=== PATIENT | female | born 1970 | race Caucasian/White ===

== ENCOUNTER → 2018-03-09 | Outpatient (CLI) | payer OTHER ==
--- NOTE | 2018-03-09 16:36 | RAD ---
Right lower extremity venous doppler ultrasound History: Right leg pain and swelling, lymphedema Comparison: None Findings: Multiple grayscale, color, and duplex spectral analysis sonographic images were acquired of the right lower extremity veins to evaluate for the presence of DVT. There is normal phasicity. Normal compression, color-flow, and augmentation is demonstrated from the right common femoral to the popliteal veins. There is normal color flow of the proximal greater saphenous and profunda femoris veins. There is normal color flow of segments of the calf veins. Impression: 1. There is no evidence of deep venous thrombosis from the right common femoral to popliteal veins. Electronically signed by: Ari Garcia MD (03/09/2018 4:32 PM) [id number]
== END | disposition home or self-care (01) ==
LOC: US 15:51
PROVIDERS: ATTEND Nurse Practitioner Family
DX: I89.0 Lymphedema, not elsewhere classified (principal); M79.604 Pain in right leg; R22.41 Localized swelling, mass and lump, right lower limb
CPT/HCPCS: 93971

== ENCOUNTER 2018-06-06 14:32 | Emergency (ER) | payer OTHER ==
[~2018-06-06] VITALS: Ht 177.8 cm; Wt 153.7 kg
--- NOTE | 2018-06-06 15:55 | RAD ---
Examination: 2 views of the lumbar spine HISTORY: History of low back pain COMPARISON: None available. FINDINGS: Moderate intervertebral disc height loss identified throughout the lumbar spine likely due to degeneration. The facets are well aligned. Moderate facet degenerative changes identified. There is age indeterminate moderate compression change of L5 vertebral body. Mild to moderate neural foraminal narrowing identified in the lumbar spine at L3-L4, L4-L5 and L5-S1 vertebral levels IMPRESSION: Moderate degenerative changes lumbar spine. Age indeterminate moderate compression change of L5 vertebral body. Electronically signed by: Poncho Gordon MD (06/06/2018 3:51 PM) [facility]
--- NOTE | 2018-06-06 16:00 | PHYS DOC ---
Past History Past Medical History: Anxiety, Depression Past Surgical History: Hysterectomy Alcohol Use: None Drug Use: None Adult General Chief Complaint Chief Complaint: BACK PAIN - NO INJURY HPI HPI 47-year-old female presents with left-sided low back pain. Patient states that the pain started 5 days ago and has been intermittent. The pain today has a sharp character in her left lateral lumbar around L4-L5. She denies recent trauma or overuse. The patient has known degeneration and bulging disks diagnosed by MRI in the same area. Patient was worried about UTI but her urine was negative at the doctor's office this week. She is not sure if she has increased urinary frequency. She denies dysuria. They did mention that she had some blood in the urine. Review of Systems Review of Systems Constitutional: Denies fever or chills [] Eyes: Denies change in visual acuity, redness, or eye pain [] HENT: Denies nasal congestion or sore throat [] Respiratory: Denies cough or shortness of breath [] Cardiovascular: No additional information not addressed in HPI [] GI: Denies abdominal pain, nausea, vomiting, bloody stools or diarrhea [] : Denies dysuria or hematuria [] Musculoskeletal: Low back pain[] Integument: Denies rash or skin lesions [] Neurologic: Denies headache, focal weakness or sensory changes [] Endocrine: Denies polyuria or polydipsia [] All other systems were reviewed and found to be within normal limits, except as documented in this note. Allergies Allergies Allergies Coded Allergies Type Severity Reaction Last Updated Verified amoxicillin Allergy Intermediate 06/06/18 Yes oxycodone Allergy Intermediate 06/06/18 Yes hydrocodone Allergy Unknown 06/06/18 Yes tramadol Allergy Unknown 06/06/18 Yes Physical Exam Physical Exam Constitutional: Well developed, morbid obesity, well nourished, no acute distress, non-toxic appearance. [] HENT: Normocephalic, atraumatic, bilateral external ears normal, oropharynx moist, no oral exudates, nose normal. [] Eyes: PERRLA, EOMI, conjunctiva normal, no discharge. [] Neck: Normal range of motion, no tenderness, supple, no stridor. [] Cardiovascular:Heart rate regular rhythm, no murmur [] Lungs & Thorax: Bilateral breath sounds clear to auscultation [] Abdomen: Bowel sounds normal, soft, no tenderness, no masses, no pulsatile masses. [] Skin: Warm, dry, no erythema, no rash. [] Back: No tenderness, no CVA tenderness. [] Extremities: No tenderness, no cyanosis, no clubbing, ROM intact, no edema. [] Neurologic: Alert and oriented X 3, normal motor function, normal sensory function, no focal deficits noted. [] Psychologic: Affect normal, judgement normal, mood normal. [] Current Patient Data Vital Signs Vital Signs Date Time Temp Pulse Resp B/P (MAP) Pulse Ox O2 Delivery O2 Flow Rate FiO2 06/06/18 14:53 98.4 74 18 95 Room Air EKG EKG [] Radiology/Procedures Radiology/Procedures [] Impressions: Examination: 2 views of the lumbar spine HISTORY: History of low back pain COMPARISON: None available. FINDINGS: Moderate intervertebral disc height loss identified throughout the lumbar spine likely due to degeneration. The facets are well aligned. Moderate facet degenerative changes identified. There is age indeterminate moderate compression change of L5 vertebral body. Mild to moderate neural foraminal narrowing identified in the lumbar spine at L3-L4, L4-L5 and L5-S1 vertebral levels IMPRESSION: Moderate degenerative changes lumbar spine. Age indeterminate moderate compression change of L5 vertebral body. Electronically signed by: Poncho Gordon MD (06/06/2018 3:51 PM) [facility] DICTATED AND SIGNED BY: PONCHO GORDON MD DATE: 06/06/18 1549 CC: TERESA DENG DO; REID REICH Course & Med Decision Making Course & Med Decision Making Pertinent Labs and Imaging studies reviewed. (See chart for details) The patient's x-ray does not show any acute findings. She already had preceding diagnosed degenerative change as well as L5 compression fracture years ago. Patient's urinalysis is unremarkable. I believe this is a lumbosacral strain. I will give her a short course of [place] 5/325 and Flexeril. She will follow up with her PCP. She is stable for discharge at this time. [] Dragon Disclaimer Dragon Disclaimer This electronic medical record was generated, in whole or in part, using a voice recognition dictation system. Departure Departure: Referrals: REID REICH (PCP) Scripts Cyclobenzaprine Hcl (CYCLOBENZAPRINE HCL) 10 Mg Tablet 1 TAB PO TID PRN for MUSCLE SPASMS, #30 TAB Prov: TERESA DENG DO 06/06/18 Hydrocodone Bit/Acetaminophen (NORCO 5-325 TABLET) 1 Each Tablet 1 TAB PO PRN Q6HRS PRN for PAIN, #10 TAB 0 Refills Prov: TERESA DENG DO 06/06/18 TERESA DENG DO Jun 06, 2018 16:00
[2018-06-06 16:43] VITALS: BP 142/86
[2018-06-06 16:56] LABS: BILIRUBIN,URINE NEG (NEG); CLARITY,URINE HAZY; COLOR,URINE YELLOW; GLUCOSE,URINE NEG (NEG); NITRITE,URINE NEG (NEG); UROBILINOGEN,URINE 0.2 mg/dL (0.2 mg/dL)
[2018-06-06 16:57] LABS: BACTERIA,URINE FEW /HPF (0-FEW); SQUAMOUS EPITHELIAL CELL,UR MOD /LPF
[2018-06-06] MEDS ORDERED: HYDR-3165 PO (17:10)
[2018-06-06] MEDS ORDERED: CYCL-331 PO (17:10)
== END 2018-06-06 17:16 | disposition home or self-care (01) ==
LOC: ER 14:32
DX: M54.5 Low back pain (principal); R31.9 Hematuria, unspecified; F41.9 Anxiety disorder, unspecified; F32.9 Major depressive disorder, single episode, unspecified; Z90.710 Acquired absence of both cervix and uterus; Z88.1 Allergy status to other antibiotic agents; Z88.5 Allergy status to narcotic agent; Z88.6 Allergy status to analgesic agent
CPT/HCPCS: 72100; 81001; 87086; 99284

== ENCOUNTER 2018-07-19 17:01 | Observation (INO) | payer OTHER ==
[~2018-07-19] VITALS: Ht 165.1 cm; Wt 155.2 kg
[~2018-07-19 17:01] MED LIST: CYCL-331 PO; HYDR-3165 PO
[2018-07-19] MEDS ORDERED: BUSP15TA PO (17:20)
[2018-07-19] MEDS ORDERED: SERT50TA8 PO (17:20)
[2018-07-19 17:40] VITALS: BP 175/96
[2018-07-19] MEDS ORDERED: ALPR0.25 PO (18:19)
[2018-07-19 18:44] LABS: BASO # 0.1 x10^3/uL (0.0-0.2); BASO % 1 % (0-3); EOS # 0.3 x10^3/uL (0.0-0.7); EOS % 4 % (0-3); HEMATOCRIT 41.4 % (36.0-47.0); HEMOGLOBIN 13.5 g/dL (12.0-15.5); LYMPH # 1.9 x10^3/uL (1.0-4.8); LYMPH % 24 % (24-48); MEAN CORPUSCULAR HEMOGLOBIN 27 pg (25-35); MEAN CORPUSCULAR HGB CONC 33 g/dL (31-37); MEAN CORPUSCULAR VOLUME 83 fL (79-100); MONO # 0.4 x10^3/uL (0.0-1.1); MONO % 5 % (0-9); NEUT % 65 % (31-73); PLATELET COUNT 270 x10^3/uL (140-400); RED BLOOD COUNT 4.98 x10^6/uL (3.50-5.40); WHITE BLOOD COUNT 7.7 x10^3/uL (4.0-11.0)
[2018-07-19 18:45] LABS: ALBUMIN 3.8 g/dL (3.4-5.0); ALBUMIN/GLOBULIN RATIO 1.3 (1.0-1.7); CALCIUM 9.1 mg/dL (8.5-10.1); CREATININE 0.7 mg/dL (0.6-1.0); GFR 88.9; POTASSIUM 3.8 mmol/L (3.5-5.1); TOTAL BILIRUBIN 0.2 mg/dL (0.2-1.0); TOTAL PROTEIN 6.8 g/dL (6.4-8.2)
[2018-07-19] MEDS ORDERED: MORPHINE SULFATE 4 MG/ML DISP.SYRIN. IV PRN (18:45)
[2018-07-19 19:52] VITALS: BP 144/81
[2018-07-19] MEDS: busPIRone 15 MG TABLET. PO SCH (19:56)
[2018-07-19] MEDS: ALPRAZolam 0.25 MG TABLET PO PRN (19:56)
--- NOTE | 2018-07-19 21:19 | RAD ---
CHEST PA LATERAL History: Short of air. Comparison: None. Heart size: Within normal limits. Kiesha/mediastinum: Within normal limits Lungs: No focal airspace consolidation. Pleura: No evidence of pleural effusion. Pneumothorax: None visualized Bones: Regional skeleton appears grossly intact. Miscellaneous: None Impression: No acute radiographic findings. Electronically signed by: Telly Hdez MD (07/19/2018 9:15 PM) [id number]
[2018-07-20 01:24] VITALS: BP 101/62
[2018-07-20 05:40] VITALS: BP 99/61
[2018-07-20 06:11] LABS: BASO % 1 % (0-3); EOS # 0.3 x10^3/uL (0.0-0.7); EOS % 6 % (0-3); HEMATOCRIT 40.4 % (36.0-47.0); HEMOGLOBIN 12.9 g/dL (12.0-15.5); LYMPH # 1.6 x10^3/uL (1.0-4.8); LYMPH % 32 % (24-48); MEAN CORPUSCULAR HEMOGLOBIN 27 pg (25-35); MEAN CORPUSCULAR HGB CONC 32 g/dL (31-37); MEAN CORPUSCULAR VOLUME 84 fL (79-100); MONO # 0.3 x10^3/uL (0.0-1.1); MONO % 7 % (0-9); NEUT # 2.7 x10^3uL (1.8-7.7); NEUT % 54 % (31-73); PLATELET COUNT 264 x10^3/uL (140-400); RED BLOOD COUNT 4.84 x10^6/uL (3.50-5.40); RED CELL DISTRIBUTION WIDTH 14.1 % (11.5-14.5); WHITE BLOOD COUNT 4.9 x10^3/uL (4.0-11.0)
[2018-07-20 06:23] LABS: CALCIUM 8.9 mg/dL (8.5-10.1); CREATININE 0.7 mg/dL (0.6-1.0); GFR 88.9; POTASSIUM 3.9 mmol/L (3.5-5.1)
[2018-07-20] MEDS: busPIRone 15 MG TABLET. PO SCH (08:31)
[2018-07-20] MEDS: ALPRAZolam 0.25 MG TABLET PO PRN (08:31)
--- NOTE | 2018-07-20 08:56 | RAD ---
Examination: Ultrasound abdomen complete HISTORY: History of abdominal pain COMPARISON: None available FINDINGS: The visualized pancreas grossly appears unremarkable. Visualized aorta, IVC within normal limits of dimension. No evidence of gallstones identified. The echogenicity liver grossly appears unremarkable. The common bile duct measures 4.3 mm in diameter. The right kidney measures 12.7 x 4.4 x 4.6 cm. The left kidney measures 12.7 x 4.9 x 4.2 cm. The spleen measures 13 cm in length. IMPRESSION: Unremarkable visualized exam. Electronically signed by: Poncho Gordon MD (07/20/2018 8:51 AM) [place] [id number]
[2018-07-20] MEDS ORDERED: amLODIPine BESYLATE 5 MG TABLET PO SCH (09:00)
[2018-07-20] MEDS ORDERED: SERTRALINE 50 MG TABLET. PO SCH (09:00)
--- NOTE | 2018-07-20 09:24 | PDOC2 ---
CONSULT Date of Admission DATE: 07/20/18 TIME: 09:21 Reason for Consult: epigastric pain, abn EKG History of Present Illness Ms Huston is a 47 year old female who was seen in her PCP office with nausea/ vomiting and epigastric pain. She was noted to have an abnormal EKG so directly admitted and consult called. She complains of epigastric pain but denies any chest discomfort on exertion. She denies any associated exacerbating or relieving factors. She denies shortness of breath, congestive symptoms, edema. She denies palpitations, lightheadedness or syncope. She reports no change in her functional status. Cardiovascular: No pertinent hx Pulmonary: No pertinent hx GI: No pertinent hx, Other Heme/Onc: No pertinent hx Hepatobiliary: No pertinent hx Psych: Anxiety, Depression, Other (ADHD) Musculoskeletal: No pertinent hx Rheumatologic: No pertinent hx Infectious disease: No pertinent hx ENT: No pertinent hx Renal/: No pertinent hx Endocrine: No pertinent hx Dermatology: No pertinent hx Past Surgical History: Hysterectomy, Tonsillectomy Social History + smoker, no ETOH or illicit drugs Current Medications Current Medications Sertraline HCl (Zoloft) 50 mg DAILY PO Last administered on 07/20/18at 08:33; Start 07/20/18 at 09:00 Alprazolam (Xanax) 0.25 mg PRN BID PRN PO ANXIETY Last administered on at 08:31; Start 07/19/18 at 19:00 Buspirone HCl (Buspar) 15 mg BID PO Last administered on 07/20/18at 08:31; Start 07/19/18 at 21:00 Amlodipine Besylate (Norvasc) 5 mg DAILY PO ; Start 07/20/18 at 09:00 Morphine Sulfate (Morphine 4mg Syringe) 2 mg PRN Q2HR PRN IV PAIN; Start at 18:45 Active Scripts Active Reported Xanax (Alprazolam) 0.25 Mg Tablet 1 Tab PO PRN BID PRN Sertraline Hcl 50 Mg Tablet 1 Tab PO DAILY Buspirone Hcl 15 Mg Tablet 1 Tab PO BID Allergies: Coded Allergies: amoxicillin (Verified Allergy, Intermediate, 06/06/18) oxycodone (Verified Allergy, Intermediate, 06/06/18) hydrocodone (Verified Allergy, Unknown, 06/06/18) tramadol (Verified Allergy, Unknown, 06/06/18) Review of System as per HPI or negative General: Alert, Oriented X3, Cooperative, No acute distress HEENT: Atraumatic, EOMI, Mucous membr. moist/pink Lungs: Clear to auscultation, Normal air movement Heart: Normal S1, Normal S2, No murmurs Abdomen: Normal bowel sounds, Soft Extremities: No clubbing, No cyanosis, No edema, Normal pulses Neuro: Normal speech, Strength at 5/5 X4 ext Psych/Mental Status: Mental status NL, Mood NL VITALS Vital Signs Date Time Temp Pulse Resp B/P (MAP) Pulse Ox O2 Delivery O2 Flow Rate FiO2 07/20/18 09:00 71 99/61 07/20/18 08:30 Room Air 07/20/18 05:40 97.5 20 95 Labs Laboratory Tests Test 07/19/18 17:51 07/19/18 18:00 07/20/18 00:30 07/20/18 05:45 White Blood Count 7.7 x10^3/uL (4.0-11.0) 4.9 x10^3/uL (4.0-11.0) Red Blood Count 4.98 x10^6/uL (3.50-5.40) 4.84 x10^6/uL (3.50-5.40) Hemoglobin 13.5 g/dL (12.0-15.5) 12.9 g/dL (12.0-15.5) Hematocrit 41.4 % (36.0-47.0) 40.4 % (36.0-47.0) Mean Corpuscular Volume 83 fL (79-100) 84 fL (79-100) Mean Corpuscular Hemoglobin 27 pg (25-35) 27 pg (25-35) Mean Corpuscular Hemoglobin Concent 33 g/dL (31-37) 32 g/dL (31-37) Red Cell Distribution Width 14.0 % (11.5-14.5) 14.1 % (11.5-14.5) Platelet Count 270 x10^3/uL (140-400) 264 x10^3/uL (140-400) Neutrophils (%) (Auto) 65 % (31-73) 54 % (31-73) Lymphocytes (%) (Auto) 24 % (24-48) 32 % (24-48) Monocytes (%) (Auto) 5 % (0-9) 7 % (0-9) Eosinophils (%) (Auto) 4 % (0-3) 6 % (0-3) Basophils (%) (Auto) 1 % (0-3) 1 % (0-3) Neutrophils # (Auto) 5.0 x10^3uL (1.8-7.7) 2.7 x10^3uL (1.8-7.7) Lymphocytes # (Auto) 1.9 x10^3/uL (1.0-4.8) 1.6 x10^3/uL (1.0-4.8) Monocytes # (Auto) 0.4 x10^3/uL (0.0-1.1) 0.3 x10^3/uL (0.0-1.1) Eosinophils # (Auto) 0.3 x10^3/uL (0.0-0.7) 0.3 x10^3/uL (0.0-0.7) Basophils # (Auto) 0.1 x10^3/uL (0.0-0.2) 0.0 x10^3/uL (0.0-0.2) D-Dimer (Lucille) 0.39 mg/L (0.00-0.50) Sodium Level 143 mmol/L (136-145) 142 mmol/L (136-145) Potassium Level 3.8 mmol/L (3.5-5.1) 3.9 mmol/L (3.5-5.1) Chloride Level 104 mmol/L (98-107) 106 mmol/L (98-107) Carbon Dioxide Level 30 mmol/L (21-32) 29 mmol/L (21-32) Anion Gap 9 (6-14) 7 (6-14) Blood Urea Nitrogen 18 mg/dL (7-20) 17 mg/dL (7-20) Creatinine 0.7 mg/dL (0.6-1.0) 0.7 mg/dL (0.6-1.0) Estimated GFR (Cockcroft-Gault) 88.9 88.9 BUN/Creatinine Ratio 26 (6-20) Glucose Level 90 mg/dL (70-99) 100 mg/dL (70-99) Calcium Level 9.1 mg/dL (8.5-10.1) 8.9 mg/dL (8.5-10.1) Total Bilirubin 0.2 mg/dL (0.2-1.0) Aspartate Amino Transf (AST/SGOT) 18 U/L (15-37) Alanine Aminotransferase (ALT/SGPT) 25 U/L (14-59) Alkaline Phosphatase 110 U/L (46-116) Creatine Kinase 145 U/L (26-192) Troponin I Quantitative < 0.017 ng/mL (0-0.055) < 0.017 ng/mL (0-0.055) < 0.017 ng/mL (0-0.055) CB-Nkn-U-Type Natriuretic Peptide 25 pg/mL (0-124) Total Protein 6.8 g/dL (6.4-8.2) Albumin 3.8 g/dL (3.4-5.0) Albumin/Globulin Ratio 1.3 (1.0-1.7) Images CXR - no acute abnormality EKG - sinus rhythm, nonspecific inferior st/t abn, early R transition. Abd US - IMPRESSION: Unremarkable visualized exam. Assessment/Plan 1. abn EKG - nonspecific changes. No acute ischemia. Kurt negative, [place] ruled out 2. epigastric pain - atypical for cardiac origin. 3. hypertension - situational, now mildly hypotensive. hold norvasc. await echo. 4. tobaccoism - cessation encouraged 5. obesity - weight reduction encouraged 6. anxiety - per PCP await echo. 6 min walk. If no significant abn could have barbie MPI as outpatient. LIANA TIERNEY LOAN TELLER Jul 20, 2018 09:24
[2018-07-20 11:39] VITALS: BP 120/73
[2018-07-20] MEDS ORDERED: PANT40TA5 PO (12:28)
[2018-07-20] MEDS ORDERED: ASPI-612 PO (12:28)
--- NOTE | 2018-07-20 14:13 | DS ---
DATE OF DISCHARGE: HOSPITAL COURSE: The patient admitted with some abnormal EKG with some nausea, vomiting and abdominal discomfort. The patient's ultrasound was negative. Chest x-ray, no acute findings. The patient's cardiac enzymes were negative. She was seen by Cardiology and will do an outpatient MPI, otherwise 6-minute walk was unremarkable. IMPRESSION: Chest pain, unknown etiology, morbid obesity, epigastric discomfort. The patient will be discharged home, follow up with Dr. Cruz as an outpatient. JULITO HILL MD DR: ADALI/susie JOB#: [id number] / [id number]
--- NOTE | 2018-07-20 14:33 | CARD ---
MR#: [id number] Date of Study: 07/20/2018 Ordering Physician: JULITO HILL, Referring Physician: JULITO HILL, Tech: Luna Colon ALLYSON APPROVED REPORT EXAM: Two-dimensional and M-mode echocardiogram with Doppler and color Doppler. Other Information Quality : Technically LimitedHR: 64bpm Rhythm : NSRTechnically limited study due to body habitus and smoking. INDICATION Chest Pain RISK FACTORS Hypertension Obesity Smoking 2D DIMENSIONS RVDd2.7 (2.9-3.5cm)Left Atrium(2D)2.9 (1.6-4.0cm) IVSd1.0 (0.7-1.1cm)Aortic Root(2D)2.8 (2.0-3.7cm) LVDd4.6 (3.9-5.9cm)LVOT Diameter1.9 (1.8-2.4cm) PWd1.1 (0.7-1.1cm)LVDs3.0 (2.5-4.0cm) FS (%) 35.8 %SV64.0 ml LVEF(%)65.4 (>50%) Aortic Valve AoV Peak Joseph.137.0cm/sAoV VTI27.8cm AO Peak GR.7.5mmHgLVOT Peak Joseph.107.1cm/s LVOT VTI 22.00cmAO Mean GR.4mmHg AYLA (VMAX)2.97gk2HEV (VTI)2.29cm2 Mitral Valve MV E Gawbtnvi89.7cm/sMV DECEL [id number] MV A Uiyoviaz26.8cm/sE/A Ratio1.3 MV A Ajonemlk487pr Pulmonary Valve PV Peak Qrcjbpqj60.8cm/sPV Peak Grad.3mmHg LEFT VENTRICLE The left ventricle is normal size. There is normal left ventricular wall thickness. The left ventricu lar systolic function is normal. The Ejection Fraction is 60-65%. There is normal LV segmental wall m otion. RIGHT VENTRICLE The right ventricle is not well visualized. There is normal right ventricular wall thickness. The rig ht ventricular systolic function is normal. ATRIA The left atrium size is normal. The right atrium size is normal. The interatrial septum is intact wit h no evidence for an atrial septal defect or patent foramen ovale as noted on 2-D or Doppler imaging. AORTIC VALVE The aortic valve is probably trileaflet. The aortic valve is normal in structure and function. Dopple r and Color Flow revealed no significant aortic regurgitation. There is no significant aortic valvula r stenosis. MITRAL VALVE The mitral valve is normal in structure and function. There is no evidence of mitral valve prolapse. There is no mitral valve stenosis. Doppler and Color Flow revealed no mitral valve regurgitation note d. TRICUSPID VALVE The tricuspid valve is normal in structure and function. Doppler and Color Flow revealed no tricuspid valve regurgitation noted. There is no tricuspid valve prolapse or vegetation. PULMONIC VALVE Pulmonic valve not well visualized. GREAT VESSELS The aortic root is normal in size. The ascending aorta is normal in size. PERICARDIAL EFFUSION There is no evidence of significant pericardial effusion. Critical Notification Critical Value: No <Conclusion> The left ventricular systolic function is normal. The Ejection Fraction is 60-65%. There is normal LV segmental wall motion. No significant valvular abnormalities. There is no evidence of significant pericardial effusion. Signed by : Chase Hurtado, Electronically Approved : 07/20/2018 14:31:16
[2018-07-21] MEDS ORDERED: PANTOPRAZOLE 40 MG TABLET. PO SCH (07:30)
[2018-07-21] MEDS ORDERED: ASPIRIN ENTERIC COATED 81 MG TABLET.DR. PO SCH (08:00)
--- NOTE | 2018-07-22 06:14 | EKG ---
[address] [address] Test Date: 2018-07-19 Test Time: 18:19:57 Pat Name: KRISTIAN GALVAN Department: Room: 119 A Gender: F [employer] Worker: CHRISSY : 1970 Requested By: JULITO HILL Order Number: [id number] Reading MD: Jack Cruz MD Measurements Intervals [place] Rate: 59 P: 21 DE: 166 QRS: 18 QRSD: 90 T: -2 QT: 418 QTc: 414 Interpretive Statements SINUS RHYTHM Electronically Signed On 07-22-2018 14:49:06 HAND II BLOCKER by Jack Cruz MD
== END 2018-07-20 15:20 | disposition home or self-care (01) ==
LOC: 1 SOUTH 17:23 → INTOOBSV 17:23
PROVIDERS: ADMIT Family Medicine; ATTEND Family Medicine
DX: K21.9 Gastro-esophageal reflux disease without esophagitis (principal); R94.31 Abnormal electrocardiogram [ECG] [EKG]; R06.02 Shortness of breath; F17.210 Nicotine dependence, cigarettes, uncomplicated; F41.9 Anxiety disorder, unspecified; F32.9 Major depressive disorder, single episode, unspecified; F90.9 Attention-deficit hyperactivity disorder, unspecified type; E66.01 Morbid (severe) obesity due to excess calories; I10 Essential (primary) hypertension; R07.9 Chest pain, unspecified; Z88.8 Allergy status to other drugs, medicaments and biological substances; Z90.710 Acquired absence of both cervix and uterus; Z79.899 Other long term (current) drug therapy
CPT/HCPCS: 36415; 71046; 76700; 80048; 80053; 80061; 82550; 83880; 84484; 85025; 85379; 93306; 94618; G0378; G0379; 93005

== ENCOUNTER 2019-03-22 08:02 | Emergency (ER) | payer OTHER ==
[~2019-03-22] VITALS: Ht 165.1 cm; Wt 158.0 kg
[~2019-03-22 08:02] MED LIST changes: +ALPR0.25 PO; +ASPI-612 PO; +BUSP15TA PO; +PANT40TA5 PO; +SERT50TA8 PO
--- NOTE | 2019-03-22 08:37 | PHYS DOC ---
Past History Past Medical History: Anxiety, Depression Past Surgical History: Hysterectomy, Tonsillectomy Alcohol Use: None Drug Use: None Adult General Chief Complaint Chief Complaint: SHOULDER INJURY [facility] HPI 48-year-old female presents with left shoulder blade pain. Patient first noticed this 4 days ago when she woke up. She was in [place] at that time. She denies any falls or trauma. She has not been doing anything strenuous cause this pain. The patient has tried ibuprofen and Tylenol at home. She presents this morning because the pain has become persistent. It was intermittent on and off yesterday. It is described as a moderate pain. It is painful with palpation of the thoracic paraspinal muscles at T4-6 on the left. The patient has had a cough for a few days and wonders if this is related. She has had pneumonia in the past. She denies fever or chills. Review of Systems Review of Systems Constitutional: Denies fever or chills [] Eyes: Denies change in visual acuity, redness, or eye pain [] HENT: Denies nasal congestion or sore throat [] Respiratory: Denies cough or shortness of breath [] Cardiovascular: No additional information not addressed in HPI [] GI: Denies abdominal pain, nausea, vomiting, bloody stools or diarrhea [] : Denies dysuria or hematuria [] Musculoskeletal: Thoracic back pain[] Integument: Denies rash or skin lesions [] Neurologic: Denies headache, focal weakness or sensory changes [] Endocrine: Denies polyuria or polydipsia [] All other systems were reviewed and found to be within normal limits, except as documented in this note. Allergies Allergies Allergies Coded Allergies Type Severity Reaction Last Updated Verified amoxicillin Allergy Intermediate 03/22/19 Yes oxycodone Allergy Intermediate 03/22/19 Yes hydrocodone Allergy Unknown 03/22/19 Yes tramadol Allergy Unknown 03/22/19 Yes Physical Exam Physical Exam Constitutional: Well developed, well nourished, no acute distress, non-toxic appearance. [] HENT: Normocephalic, atraumatic, bilateral external ears normal, oropharynx moist, no oral exudates, nose normal. [] Eyes: PERRLA, EOMI, conjunctiva normal, no discharge. [] Neck: Normal range of motion, no tenderness, supple, no stridor. [] Cardiovascular:Heart rate regular rhythm, no murmur [] Lungs & Thorax: Bilateral breath sounds clear to auscultation [] Abdomen: Bowel sounds normal, soft, no tenderness, no masses, no pulsatile masses. [] Skin: Warm, dry, no erythema, no rash. [] Back: Tenderness over paraspinal muscles on the left T4-6. No obvious deformity[] Extremities: No tenderness, no cyanosis, no clubbing, ROM intact, no edema. [] Neurologic: Alert and oriented X 3, normal motor function, normal sensory function, no focal deficits noted. [] Psychologic: Affect normal, judgement normal, mood normal. [] Current Patient Data Vital Signs Vital Signs Date Time Temp Pulse Resp B/P (MAP) Pulse Ox O2 Delivery O2 Flow Rate FiO2 03/22/19 08:10 98.4 84 18 96 Room Air EKG EKG [] Radiology/Procedures Radiology/Procedures [] Impressions: LEFT SHOULDER , 3 VIEWS Clinical Indication: Scapular pain. Comparison: None. Findings: There is no acute fracture or dislocation. The acromioclavicular and glenohumeral joints are intact. The visualized lung is clear. There is no evidence of a displaced rib fracture. There is no soft tissue abnormality. IMPRESSION: No acute bone abnormality. Electronically signed by: Alvino Locke MD (03/22/2019 9:44 AM) [id number] DICTATED AND SIGNED BY: ALVINO LOCKE MD DATE: 03/22/1944 CC: TERESA DENG DO; REID REICH ~ AP and Lateral Views of the Chest 03/22/2019 8:29 AM Indication: Scapular pain Comparison: chest radiograph July 19, 2018 Findings: There is no focal consolidation or infiltrate identified. The cardiomediastinal silhouette is within normal limits. There is no evidence of pneumothorax or pleural effusion. No acute osseous abnormalities are identified. Impression: No evidence of acute cardiopulmonary process. Electronically signed by: Gregorio Manley MD (03/22/2019 9:26 AM) [id number] DICTATED AND SIGNED BY: GREGORIO MANLEY MD DATE: 03/22/19925 CC: TERESA DENG DO; REID REICH ~ Course & Med Decision Making Course & Med Decision Making Pertinent Labs and Imaging studies reviewed. (See chart for details) The patient's x-rays were unremarkable. This appears to be musculoskeletal in nature as the patient has point tenderness. I will try and 3 days of prednisone as well as Flexeril. If this does not improve, she will follow up with her primary care physician. She is stable for discharge at this time. [] Dragon Disclaimer Dragon Disclaimer This electronic medical record was generated, in whole or in part, using a voice recognition dictation system. Departure Departure: Impression: Primary Impression: Thoracic back pain Disposition: HOME, SELF-CARE Condition: STABLE Referrals: REID REICH-Juan (PCP) Patient Instructions: Back Pain, Adult, [id number] Scripts Cyclobenzaprine Hcl (CYCLOBENZAPRINE HCL) 10 Mg Tablet 1 TAB PO TID PRN for MUSCLE SPASMS, #30 TAB Prov: TERESA DENG DO 03/22/19 Prednisone (PREDNISONE) 20 Mg Tablet 2 TAB PO DAILY for back pain for 3 Days, #6 TAB Prov: TERESA DENG DO 03/22/19 Problem Qualifiers Primary Impression: Thoracic back pain Chronicity: acute Back pain laterality: left Qualified Codes: M54.6 - Pain in thoracic spine TERESA DENG DO Mar 22, 2019 08:37
--- NOTE | 2019-03-22 09:29 | RAD ---
AP and Lateral Views of the Chest 03/22/2019 8:29 AM Indication: Scapular pain Comparison: chest radiograph July 19, 2018 Findings: There is no focal consolidation or infiltrate identified. The cardiomediastinal silhouette is within normal limits. There is no evidence of pneumothorax or pleural effusion. No acute osseous abnormalities are identified. Impression: No evidence of acute cardiopulmonary process. Electronically signed by: Gregorio Donald MD (03/22/2019 9:26 AM) [id number]
--- NOTE | 2019-03-22 09:47 | RAD ---
LEFT SHOULDER , 3 VIEWS Clinical Indication: Scapular pain. Comparison: None. Findings: There is no acute fracture or dislocation. The acromioclavicular and glenohumeral joints are intact. The visualized lung is clear. There is no evidence of a displaced rib fracture. There is no soft tissue abnormality. IMPRESSION: No acute bone abnormality. Electronically signed by: Triston Locke MD (03/22/2019 9:44 AM) [id number]
[2019-03-22] MEDS ORDERED: PRED20TA PO (09:57)
[2019-03-22] MEDS ORDERED: CYCL-331 PO (09:57)
[2019-03-22 10:05] VITALS: BP 111/72
== END 2019-03-22 10:05 | disposition home or self-care (01) ==
LOC: ER 08:02
DX: M54.6 Pain in thoracic spine (principal); M25.511 Pain in right shoulder; Z88.1 Allergy status to other antibiotic agents; Z88.5 Allergy status to narcotic agent; Z88.6 Allergy status to analgesic agent
CPT/HCPCS: 71046; 73030; 99284

== ENCOUNTER 2019-04-07 02:14 | Observation (INO) | payer OTHER ==
[~2019-04-07] VITALS: Ht 165.1 cm; Wt 156.3 kg
[~2019-04-07 02:14] MED LIST changes: +PRED20TA PO
--- NOTE | 2019-04-07 02:18 | ED.ADGEN ---
Past History Past Medical History: Anxiety, Bronchitis, Constipation, COPD, Depression, GERD Past Surgical History: Hysterectomy, Tonsillectomy Smoking: Cigarettes Alcohol Use: None Drug Use: None Adult General Chief Complaint Chief Complaint ".. I actually started feeling bad yesterday.. I did see [facility].. Sherry.. .. I had norman bad epigastric discomfort.. and I ve been more short of breath.. much more short of breath tonight... " HPI HPI Patient is a 48 year old female who presents with above hx and complaints epigastric comfort and dyspnea. Patient does smoke. Pt. has been Vaping in an effort to stop smoking. . Recent travel to [facility] 3 weeks ago. No specific ill contacts. Patient symptoms actually started more acutely 48 hours ago. Now become more progressive with more dyspnea the last 9 hours. Persistent cough, non - productive. Epigastric and lower chest discomfort - described as severe GERD discomfort. No hx of bad food. Pt. denies any changes in meds. No travel or significant ill contacts, however boyfriend recently had upper respiratory infection.. . Pt. denies intake bad food. Does have hx of GERD. Hx. of prior episodes of bronchitis. Pt. has been using albuterol MDI with no improvement. Review of Systems Review of Systems Constitutional: Denies fever or chills [] Eyes: Denies change in visual acuity, redness, or eye pain [] HENT:Hx. of nasal congestion and rhinorrhea Respiratory: Complains of shortness of breath [] Cardiovascular: No additional information not addressed in HPI [] GI: Complains of epigastric abdominal pain, nausea,. Vomiting, bloody stools or diarrhea [] : Denies dysuria or hematuria [] Musculoskeletal: Denies back pain or joint pain [] Integument: Denies rash or skin lesions [] Neurologic: Denies headache, focal weakness or sensory changes [] Endocrine: Denies polyuria or polydipsia [] All other systems were reviewed and found to be within normal limits, except as documented in this note. Family History Family History Adopted- no hx Current Medications Current Medications Current Medications Medications (Trade) Dose Ordered Sig/Marina Start Time Stop Time Status Last Admin Dose Admin Acetaminophen (Tylenol) 650 mg PRN Q4HRS PRN 04/07/19 04:15 04/08/19 04:14 Albuterol/ Ipratropium (Duoneb) 3 ml 1X ONCE 04/07/19 03:15 04/07/19 03:16 DC 04/07/19 03:39 3 ML Aspirin (Children'S Aspirin) 324 mg 1X ONCE 04/07/19 03:15 04/07/19 03:16 DC 04/07/19 03:38 324 MG Azithromycin (Zithromax) 500 mg 1X ONCE 04/07/19 03:15 04/07/19 03:16 DC 04/07/19 03:37 500 MG Ceftriaxone Sodium 1 gm/ Sodium Chloride 50 ml @ 100 mls/hr 1X ONCE 04/07/19 03:30 04/07/19 03:59 DC 04/07/19 03:41 100 MLS/HR Ceftriaxone Sodium (Rocephin) 1 gm STK-MED ONCE 04/07/19 03:40 04/07/19 03:40 DC Enoxaparin Sodium (Lovenox 150mg Syringe) 150 mg 1X ONCE 04/07/19 03:15 04/07/19 03:16 DC 04/07/19 03:39 150 MG Famotidine (Pepcid Vial) 20 mg 1X ONCE 04/07/19 03:15 04/07/19 03:16 DC 04/07/19 03:37 20 MG Ketorolac Tromethamine (Toradol 30mg Vial) 30 mg 1X ONCE 04/07/19 03:15 04/07/19 03:16 DC 04/07/19 03:38 30 MG Lactated Ringer's 1,000 ml @ 1,000 mls/hr 1X ONCE 04/07/19 03:00 04/07/19 03:59 DC 04/07/19 03:36 1,000 MLS/HR Methylprednisolone Sodium Succinate (SOLU-Medrol 125MG VIAL) 125 mg 1X ONCE 04/07/19 03:15 04/07/19 03:16 DC 04/07/19 03:37 125 MG Ondansetron HCl (Zofran) 4 mg PRN Q4HRS PRN 04/07/19 04:15 04/08/19 04:14 Sodium Chloride 50 ml @ As Directed STK-MED ONCE 04/07/19 03:39 04/07/19 03:40 DC Allergies Allergies Allergies Coded Allergies Type Severity Reaction Last Updated Verified amoxicillin Allergy Intermediate 03/22/19 Yes oxycodone Allergy Intermediate 03/22/19 Yes hydrocodone Allergy Unknown 03/22/19 Yes tramadol Allergy Unknown 03/22/19 Yes Physical Exam Physical Exam Constitutional:Moderate acute distress, non-toxic appearance. [] HENT: Normocephalic, atraumatic, bilateral external ears normal, oropharynx moist, no oral exudates, nose mild turbinate injection and congestion. Clear rhinorrhea. Eyes: PERRLA, EOMI, conjunctiva normal, no discharge. Glasses. Neck: Normal range of motion, no tenderness, supple, no stridor. [] Cardiovascular:Heart rate regular rhythm, no murmur [] Lungs & Thorax: Bilateral breath sounds equal at apexes with some basilar crackles on auscultation [] Abdomen: Bowel sounds normal, soft, no tenderness, no masses, no pulsatile masses. Morbid obesity. Old surgery scar. Skin: Warm, dry, no erythema, no rash. Tattoos Back: No tenderness, no CVA tenderness. [] Extremities: No tenderness, no cyanosis, no clubbing, ROM intact, 2+ ankle edema. [] No cording appreciated Neurologic: Alert and oriented X 3, normal motor function, normal sensory function, no focal deficits noted. [] Psychologic: Affect anxious, judgement normal, mood normal. [] Current Patient Data Vital Signs Vital Signs Date Time Temp Pulse Resp B/P (MAP) Pulse Ox O2 Delivery O2 Flow Rate FiO2 04/07/19 03:45 71 18 121/80 (94) 99 Room Air 04/07/19 02:32 98.4 Lab Results Laboratory Tests Test 04/07/19 00:45 04/07/19 03:30 White Blood Count 7.1 x10^3/uL (4.0-11.0) Red Blood Count 4.80 x10^6/uL (3.50-5.40) Hemoglobin 13.3 g/dL (12.0-15.5) Hematocrit 40.5 % (36.0-47.0) Mean Corpuscular Volume 85 fL (79-100) Mean Corpuscular Hemoglobin 28 pg (25-35) Mean Corpuscular Hemoglobin Concent 33 g/dL (31-37) Red Cell Distribution Width 14.1 % (11.5-14.5) Platelet Count 230 x10^3/uL (140-400) Neutrophils (%) (Auto) 56 % (31-73) Lymphocytes (%) (Auto) 28 % (24-48) Monocytes (%) (Auto) 9 % (0-9) Eosinophils (%) (Auto) 6 % (0-3) H Basophils (%) (Auto) 1 % (0-3) Neutrophils # (Auto) 4.0 x10^3uL (1.8-7.7) Lymphocytes # (Auto) 2.0 x10^3/uL (1.0-4.8) Monocytes # (Auto) 0.7 x10^3/uL (0.0-1.1) Eosinophils # (Auto) 0.4 x10^3/uL (0.0-0.7) Basophils # (Auto) 0.1 x10^3/uL (0.0-0.2) Erythrocyte Sedimentation Rate 2 (0-25) Prothrombin Time 9.8 SEC (9.4-11.4) Prothrombin Time INR 0.9 (0.9-1.1) Activated Partial Thromboplast Time 24 SEC (23-33) D-Dimer (Lucille) 0.30 mg/L (0.00-0.50) Sodium Level 142 mmol/L (136-145) Potassium Level 3.6 mmol/L (3.5-5.1) Chloride Level 107 mmol/L (98-107) Carbon Dioxide Level 27 mmol/L (21-32) Anion Gap 8 (6-14) Blood Urea Nitrogen 22 mg/dL (7-20) H Creatinine 0.9 mg/dL (0.6-1.0) Estimated GFR (Cockcroft-Gault) 66.3 Glucose Level 89 mg/dL (70-99) Calcium Level 8.6 mg/dL (8.5-10.1) Total Bilirubin 0.3 mg/dL (0.2-1.0) Direct Bilirubin 0.1 mg/dL (0.0-0.2) Aspartate Amino Transferase (AST) 21 U/L (15-37) Alanine Aminotransferase (ALT) 19 U/L (14-59) Alkaline Phosphatase 95 U/L (46-116) Troponin I Quantitative < 0.017 ng/mL (0-0.055) Total Protein 6.1 g/dL (6.4-8.2) L Albumin 3.0 g/dL (3.4-5.0) L Amylase Level 41 U/L (25-115) Lipase 93 U/L (73-393) Urine Collection Type Unknown Urine Color Yellow Urine Clarity Clear Urine pH 5.5 Urine Specific [place] 1.025 Urine Protein Neg (NEG-TRACE) Urine Glucose (UA) Neg mg/dL (NEG) Urine Ketones (Stick) Neg mg/dL (NEG) Urine Blood Trace (NEG) Urine Nitrite Neg (NEG) Urine Bilirubin Neg (NEG) Urine Urobilinogen Dipstick 0.2 mg/dL (0.2 mg/dL) Urine Leukocyte Esterase Neg (NEG) Urine RBC 0 /HPF (0-2) Urine WBC Occ /HPF (0-4) Urine Squamous Epithelial Cells Mod /LPF Urine Bacteria 0 /HPF (0-FEW) Urine Opiates Screen Neg (NEG) Urine Methadone Screen Neg (NEG) Urine Barbiturates Neg (NEG) Urine Phencyclidine Screen Neg (NEG) Urine Amphetamine/Methamphetamine Neg (NEG) Urine Benzodiazepines Screen Neg (NEG) Urine Cocaine Screen Neg (NEG) Urine Cannabinoids Screen Neg (NEG) Urine Ethyl Alcohol Neg (NEG) EKG EKG I interpretation EKG shows a sinus rhythm at 67 bpm. Does have bimodal P-wave's particular in left leads. There is some nonspecific anterior lateral changes but no findings of acute STEMI with contralateral changes.[] Radiology/Procedures Radiology/Procedures [][place] [address] IMAGING REPORT Signed PATIENT: KRISTIAN GALVAN ACCOUNT: [id number] : 1970 LOCATION: ER AGE: 48 SEX: F EXAM STATUS: REG ER ORD. PHYSICIAN: LASHON FREIRE MD REASON: Chest and abdomen pain, short of air PROCEDURE: ACUTE ABDOMEN SERIES EXAM: 2 VIEW ABDOMEN WITH ONE VIEW CHEST. HISTORY: Shortness of breath. Chest and abdominal pain. COMPARISON: 03/22/2019. FINDINGS: A frontal view of the chest and supine/upright views of the abdomen are obtained. There are no confluent infiltrates. There is no pneumothorax or pleural effusion. The heart is not enlarged. There is no pneumoperitoneum. There are no distended small bowel loops or significant air-fluid levels. There is gas distally. Stool throughout the colon is consistent with constipation. The liver appears enlarged. There are moderate to severe degenerative changes of the lumbar spine. IMPRESSION: 1. No confluent infiltrates. 2. No evidence of obstruction. Correlate for constipation. 3. The liver appears enlarged. Electronically signed by: Itzel Ludwig MD (04/07/2019 3:16 AM) [facility] DICTATED AND SIGNED BY: ALPHONSE LUDWIG MD DATE: 04/07/19 0316 CC: LASHON FREIRE MD; REID REICHP-C ~ Course & Med Decision Making Course & Med Decision Making Pertinent Labs and Imaging studies reviewed. (See chart for details) Pt. reports min. improvement 0415. Will admit for further eval and treatment. [] Final Impression Final Impression 1. Dyspnea 2. GERD[] 3. Morbid Obesity 4. COPD exacerbation] 5. Tobacco Use 6. Epigastric pain- Abdomen pain 7. Constipation Dragon Disclaimer Dragon Disclaimer This electronic medical record was generated, in whole or in part, using a voice recognition dictation system. Dragon Disclaimer This chart was dictated in whole or in part using Voice Recognition software in a busy, high-work load, and often noisy Emergency Department environment. It may contain unintended and wholly unrecognized errors or omissions. LASHON FREIRE MD Apr 07, 2019 02:18
[2019-04-07] MEDS ORDERED: IV RINGERS SOLUTION,LACTATED 1,000 ML IV ONE (03:00)
[2019-04-07] MEDS ORDERED: ONDANSETRON PF 4 MG/2 ML VIAL. IV ONE (03:15)
[2019-04-07] MEDS ORDERED: IPRATRPIUM/ALBUTEROL 0.5/2.5MG 3 ML NEBU. NEB ONE (03:15)
[2019-04-07] MEDS ORDERED: ENOXAPARIN ** NOTE DOSE ** SYRINGE SQ ONE (03:15)
[2019-04-07] MEDS ORDERED: methylPREDNISolone SOD SUCC PF 125 MG/2 ML VIAL. IV ONE (03:15)
[2019-04-07] MEDS ORDERED: KETOROLAC 30 MG/ML VIAL. IV ONE (03:15)
[2019-04-07] MEDS ORDERED: AZITHROMYCIN 250 MG TABLET. PO ONE (03:15)
[2019-04-07] MEDS ORDERED: FAMOTIDINE 20 MG/2 ML VIAL IVP ONE (03:15)
[2019-04-07] MEDS ORDERED: ASPIRIN 81 MG TAB.CHEW PO ONE (03:15)
--- NOTE | 2019-04-07 03:18 | RAD ---
EXAM: 2 VIEW ABDOMEN WITH ONE VIEW CHEST. HISTORY: Shortness of breath. Chest and abdominal pain. COMPARISON: 03/22/2019. FINDINGS: A frontal view of the chest and supine/upright views of the abdomen are obtained. There are no confluent infiltrates. There is no pneumothorax or pleural effusion. The heart is not enlarged. There is no pneumoperitoneum. There are no distended small bowel loops or significant air-fluid levels. There is gas distally. Stool throughout the colon is consistent with constipation. The liver appears enlarged. There are moderate to severe degenerative changes of the lumbar spine. IMPRESSION: 1. No confluent infiltrates. 2. No evidence of obstruction. Correlate for constipation. 3. The liver appears enlarged. Electronically signed by: Itzel Ludwig MD (04/07/2019 3:16 AM) [facility]
[2019-04-07 03:19] LABS: BASO # 0.1 x10^3/uL (0.0-0.2); BASO % 1 % (0-3); EOS # 0.4 x10^3/uL (0.0-0.7); EOS % 6 % (0-3); HEMATOCRIT 40.5 % (36.0-47.0); HEMOGLOBIN 13.3 g/dL (12.0-15.5); LYMPH % 28 % (24-48); MEAN CORPUSCULAR HEMOGLOBIN 28 pg (25-35); MEAN CORPUSCULAR HGB CONC 33 g/dL (31-37); MEAN CORPUSCULAR VOLUME 85 fL (79-100); MONO # 0.7 x10^3/uL (0.0-1.1); MONO % 9 % (0-9); NEUT % 56 % (31-73); PLATELET COUNT 230 x10^3/uL (140-400); RED CELL DISTRIBUTION WIDTH 14.1 % (11.5-14.5); WHITE BLOOD COUNT 7.1 x10^3/uL (4.0-11.0)
[2019-04-07 03:36] LABS: CALCIUM 8.6 mg/dL (8.5-10.1); CREATININE 0.9 mg/dL (0.6-1.0); DIRECT BILIRUBIN 0.1 mg/dL (0.0-0.2); GFR 66.3; POTASSIUM 3.6 mmol/L (3.5-5.1); TOTAL BILIRUBIN 0.3 mg/dL (0.2-1.0); TOTAL PROTEIN 6.1 g/dL (6.4-8.2)
[2019-04-07] MEDS ORDERED: IV NORMAL SALINE 50ML 50 ML ONE (03:39)
[2019-04-07] MEDS ORDERED: cefTRIAXone SODIUM 1 GM VIAL ONE (03:40)
[2019-04-07 03:56] LABS: BACTERIA,URINE 0 /HPF (0-FEW); BILIRUBIN,URINE NEG (NEG); CLARITY,URINE CLEAR; COLOR,URINE YELLOW; GLUCOSE,URINE NEG (NEG); NITRITE,URINE NEG (NEG); RBC,URINE 0 /HPF (0-2); SQUAMOUS EPITHELIAL CELL,UR MOD /LPF; UROBILINOGEN,URINE 0.2 mg/dL (0.2 mg/dL); WBC,URINE OCC /HPF (0-4)
[2019-04-07 04:02] LABS: BARBITURATES NEG (NEG); BENZODIAZEPINES NEG (NEG); CANNABINOIDS NEG (NEG); COCAINE NEG (NEG); METHADONE NEG (NEG); OPIATES NEG (NEG); PHENCYCLIDINE NEG (NEG)
[2019-04-07 04:06] LABS: AMPHETAMINE/METHAMPHETAMINE NEG (NEG)
[2019-04-07] MEDS ORDERED: ACETAMINOPHEN 325 MG TABLET PO PRN (04:15)
[2019-04-07] MEDS ORDERED: MAGNESIUM HYDROXIDE 2,400 MG/30 ML ORAL.SUSP. PO ONE (04:45)
--- NOTE | 2019-04-07 04:51 | RAD ---
EXAM: CHEST ONE VIEW. HISTORY: Chest pain, shortness of breath . COMPARISON: Today's prior study. FINDINGS: A lateral view of the chest is obtained. There are no confluent infiltrates. There is no pneumothorax or pleural effusion. The heart is not enlarged. IMPRESSION: 1. No confluent infiltrates. Electronically signed by: Itzel Ludwig MD (04/07/2019 4:48 AM) [facility]
[2019-04-07] MEDS ORDERED: MELA3TAB56 PO (05:54)
[2019-04-07] MEDS ORDERED: SERT100T8 PO (05:54)
[2019-04-07 06:11] VITALS: BP 110/77
[2019-04-07] MEDS ORDERED: Influenza vaccine per PROTOCOL. MC PRN (06:30)
[2019-04-07] MEDS: ASPIRIN 81 MG TAB.CHEW PO SCH (07:57)
[2019-04-07] MEDS: FAMOTIDINE 20 MG TABLET PO SCH (07:57)
[2019-04-07] MEDS: ONDANSETRON PF 4 MG/2 ML VIAL. IV PRN ×2 (07:57→19:49)
[2019-04-07] MEDS ORDERED: methylPREDNISolone SOD SUCC PF 125 MG/2 ML VIAL. IV SCH (09:00)
[2019-04-07] MEDS ORDERED: FLU VAX QS 2019-20 (36MOS+)/PF 0.5 ML SYRINGE. VAX IM ONE (09:00)
[2019-04-07] MEDS: LACTOBACILLUS RHAMNOSUS GG 1 CAPSULE. PO SCH ×2 (09:07→20:10)
[2019-04-07] MEDS: IPRATRPIUM/ALBUTEROL 0.5/2.5MG 3 ML NEBU. NEB SCH ×4 (09:54→20:29)
[2019-04-07 11:20] VITALS: BP 112/78
[2019-04-07 15:05] VITALS: BP 115/79
--- NOTE | 2019-04-07 16:29 | CARD ---
MR#: [id number] Date of Study: 04/07/2019 Ordering Physician: JULITO HILL, Referring Physician: JULITO HILL, Tech: Waleska Bates APPROVED REPORT EXAM: Two-dimensional and M-mode echocardiogram with Doppler and color Doppler. Other Information Quality : AverageHR: 65bpm Technically limited study due to body habitus. INDICATION COPD Dyspnea RISK FACTORS Smoking 2D DIMENSIONS RVDd2.4 (2.9-3.5cm)Left Atrium(2D)2.9 (1.6-4.0cm) IVSd1.1 (0.7-1.1cm)Aortic Root(2D)3.1 (2.0-3.7cm) LVDd4.6 (3.9-5.9cm)LVOT Diameter2.1 (1.8-2.4cm) PWd1.0 (0.7-1.1cm)LVDs2.5 (2.5-4.0cm) FS (%) 45.9 %SV73.9 ml LVEF(%)77.3 (>50%) Aortic Valve AoV Peak Joseph.179.5cm/sAoV VTI39.8cm AO Peak GR.12.9mmHgLVOT Peak Joseph.131.9cm/s LVOT VTI 29.77cmAO Mean GR.8mmHg AYLA (VMAX)2.49mn0JMD (VTI)2.47cm2 Mitral Valve MV E Msvordjp28.3cm/sMV DECEL DOWN244qy MV A Lhfvxwpc09.0cm/sE/A Ratio1.4 Pulmonary Valve PV Peak Xdhyxoan92.1cm/sPV Peak Grad.4mmHg Tricuspid Valve TR P. Bwawgliz543xb/sRAP DWRXWMBP6xrWx TR Peak Gr.91xdAmKTNQ15zvHq Pulmonary Vein S1 Ewawhilw67.0cm/sD2 Rzckmfxn49.7cm/s LEFT VENTRICLE The left ventricle is normal size. There is mild concentric left ventricular hypertrophy. The left ve ntricular systolic function is normal. The Ejection Fraction is 60%. There is normal LV segmental wal l motion. Transmitral Doppler flow pattern is Grade II-pseudonormal filling dynamics. RIGHT VENTRICLE The right ventricle is normal size. There is normal right ventricular wall thickness. The right ventr icular systolic function is normal. ATRIA The left atrium is borderline dilated. The right atrium is borderline dilated. The interatrial septum is intact with no evidence for an atrial septal defect or patent foramen ovale as noted on 2-D or Do ppler imaging. AORTIC VALVE The aortic valve is normal in structure and function. Doppler and Color Flow revealed no significant aortic regurgitation. There is no significant aortic valvular stenosis. MITRAL VALVE The mitral valve is normal in structure and function. There is no evidence of mitral valve prolapse. There is no mitral valve stenosis. Doppler and Color Flow revealed no mitral valve regurgitation note d. TRICUSPID VALVE The tricuspid valve is normal in structure and function. Doppler and Color Flow revealed trace tricus pid regurgitation with an estimated PAP of 27 mmHg. There is no tricuspid valve prolapse or vegetatio n. There is no tricuspid valve stenosis. PULMONIC VALVE The pulmonic valve is not well visualized. Doppler and Color Flow revealed trace pulmonic valvular re gurgitation. GREAT VESSELS The aortic root is normal in size. The IVC is normal in size and collapses >50% with inspiration. PERICARDIAL EFFUSION There is no evidence of significant pericardial effusion. Critical Notification Critical Value: No <Conclusion> The left ventricular systolic function is normal. The Ejection Fraction is 60%. There is normal LV segmental wall motion. Trace tricuspid regurgitation with an estimated PAP of 27 mmHg. There is no evidence of significant pericardial effusion. Signed by : Chase Hurtado, Electronically Approved : 04/07/2019 16:28:37
[2019-04-07] MEDS ORDERED: ALPRAZolam 0.25 MG TABLET PO PRN (16:45)
[2019-04-07] MEDS ORDERED: SERTRALINE 50 MG TABLET. PO SCH (16:45)
[2019-04-07] MEDS: SERTRALINE 50 MG TABLET. PO SCH (16:45)
[2019-04-07] MEDS ORDERED: busPIRone 5 MG TABLET. PO ONE (16:45)
[2019-04-07 19:31] VITALS: BP 130/75
[2019-04-07] MEDS: busPIRone 15 MG TABLET. PO SCH (20:10)
[2019-04-07] MEDS ORDERED: MELATONIN 3 MG TABLET PO SCH (21:00)
[2019-04-07 23:51] VITALS: BP 98/63
--- NOTE | 2019-04-08 05:14 | PN ---
DATE: SUBJECTIVE: The patient was admitted with epigastric pain and marked increased dyspnea. The patient has been vaping in an effort to stop smoking. Recently travelled from [place], has been having abdominal pain for the last 2-3 days prior to admission with increased shortness of breath, productive cough and the like. The patient was initially seen in the office, admitted and make further evaluation on her as indicated. The patient is feeling a little better today, breathing a little bit more readily without any accessory muscles. OBJECTIVE: VITAL SIGNS: Blood pressure 130/75, respiratory rate 20, pulse 60, afebrile. GENERAL: The patient is alert and oriented. LUNGS: Diminished, poor movement of air, but basically clear. CARDIOVASCULAR: Regular sinus rhythm. ABDOMEN: Soft, nontender. EXTREMITIES: No clubbing, cyanosis or edema. NEUROLOGIC: Intact. IMPRESSION: Acute exacerbation of asthma with acute bronchitis. PLAN: Continue with present drug regimen and hopefully ready for discharge here soon as she continues to improve. JULITO HILL MD DR: ADALI/susie JOB#: [id number] / [id number]
[2019-04-08] MEDS: IPRATRPIUM/ALBUTEROL 0.5/2.5MG 3 ML NEBU. NEB SCH ×3 (05:28→09:13)
[2019-04-08 06:00] VITALS: BP 147/70
[2019-04-08 06:23] LABS: CALCIUM 8.9 mg/dL (8.5-10.1); CREATININE 0.8 mg/dL (0.6-1.0); GFR 75.9; POTASSIUM 3.5 mmol/L (3.5-5.1)
[2019-04-08 06:47] LABS: BASO % 0 % (0-3); EOS % 0 % (0-3); HEMATOCRIT 36.7 % (36.0-47.0); HEMOGLOBIN 12.1 g/dL (12.0-15.5); LYMPH # 1.2 x10^3/uL (1.0-4.8); LYMPH % 13 % (24-48); MEAN CORPUSCULAR HEMOGLOBIN 28 pg (25-35); MEAN CORPUSCULAR HGB CONC 33 g/dL (31-37); MEAN CORPUSCULAR VOLUME 85 fL (79-100); MONO # 0.5 x10^3/uL (0.0-1.1); MONO % 5 % (0-9); NEUT # 7.5 x10^3uL (1.8-7.7); NEUT % 82 % (31-73); PLATELET COUNT 241 x10^3/uL (140-400); RED BLOOD COUNT 4.34 x10^6/uL (3.50-5.40); WHITE BLOOD COUNT 9.1 x10^3/uL (4.0-11.0)
[2019-04-08] MEDS: FAMOTIDINE 20 MG TABLET PO SCH (08:46)
[2019-04-08] MEDS: busPIRone 15 MG TABLET. PO SCH (08:46)
[2019-04-08] MEDS: ASPIRIN 81 MG TAB.CHEW PO SCH (08:46)
[2019-04-08] MEDS: LACTOBACILLUS RHAMNOSUS GG 1 CAPSULE. PO SCH (08:46)
[2019-04-08] MEDS: SERTRALINE 50 MG TABLET. PO SCH (08:47)
[2019-04-08] MEDS ORDERED: methylPREDNISolone SOD SUCC PF 40 MG/ML VIAL. IV SCH (09:00)
[2019-04-08] MEDS ORDERED: AZITHROMYCIN 250 MG TABLET. PO SCH (09:00)
[2019-04-08] MEDS ORDERED: PANTOPRAZOLE 40 MG TABLET. PO SCH (09:00)
[2019-04-08] MEDS ORDERED: MAALOX:LIDO:APAP 6:2:1 ORAL SUSPENSION 180 ML BOTTLE. PO PRN (09:00)
[2019-04-08] MEDS ORDERED: FAMOTIDINE 20 MG TABLET PO SCH (09:00)
[2019-04-08] MEDS ORDERED: METH4TAB2 PO (10:29)
[2019-04-08] MEDS ORDERED: ASPI-630 PO (10:29)
[2019-04-08] MEDS ORDERED: LACT1CAP19 PO (10:29)
[2019-04-08] MEDS ORDERED: IPRA3AMP29 NEB (10:29)
[2019-04-08] MEDS ORDERED: PANT40TA5 PO (10:29)
[2019-04-08] MEDS ORDERED: FAMO20TA5 PO (10:29)
== END 2019-04-08 12:34 | disposition home or self-care (01) ==
LOC: ER 02:14 → INTOOBSV 04:15 → 1 SOUTH 04:15
PROVIDERS: ADMIT Family Medicine; ATTEND Family Medicine
DX: R07.89 Other chest pain (principal); F17.200 Nicotine dependence, unspecified, uncomplicated; F41.9 Anxiety disorder, unspecified; J44.9 Chronic obstructive pulmonary disease, unspecified; J20.9 Acute bronchitis, unspecified; K59.00 Constipation, unspecified; F32.9 Major depressive disorder, single episode, unspecified; J45.901 Unspecified asthma with (acute) exacerbation; E66.01 Morbid (severe) obesity due to excess calories; K21.9 Gastro-esophageal reflux disease without esophagitis; Z90.710 Acquired absence of both cervix and uterus; Z98.890 Other specified postprocedural states; Z23 Encounter for immunization
CPT/HCPCS: 36415; 71045; 74022; 80048; 80076; 80307; 81001; 82150; 83690; 83880; 84484; 85025; 85379; 85610; 85651; 85730; 87040; 90471; 90686; 93005; 93306; 94640; 96365; 96366; 96372; 96375; 96376; 99284; 99406; G0378; J0456; J0696; J1650; J1885; J2405; J2920; J2930; J3490; J7120; J7620; G0379

== ENCOUNTER 2019-09-30 15:45 | Emergency (ER) | payer MEDICARE, OTHER ==
[~2019-09-30] VITALS: Ht 165.1 cm; Wt 158.0 kg
[~2019-09-30 15:45] MED LIST changes: +ASPI-630 PO; +FAMO20TA5 PO; +IPRA3AMP29 NEB; +LACT1CAP19 PO; +MELA3TAB4 PO; +METH4TAB2 PO; +SERT100T8 PO
[2019-09-30 15:56] VITALS: BP 163/94
--- NOTE | 2019-09-30 16:18 | EKG ---
[address] [address] Test Date: 2019-09-30 Test Time: 16:14:09 Pat Name: KRISTIAN AGLVAN Department: Room: Gender: F Compensation Director: : 1970 Requested By: TERESA DENG Order Number: [id number] Reading MD: Measurements Intervals [place] Rate: 73 P: 49 VA: 152 QRS: 14 QRSD: 86 T: -5 QT: 378 QTc: 420 Interpretive Statements SINUS RHYTHM LEFT ATRIAL ABNORMALITY T ABNORMALITY IN INFERIOR LEADS ABNORMAL ECG RI6.01 No previous ECG available for comparison
--- NOTE | 2019-09-30 16:25 | RAD ---
CHEST AP ONLY Clinical indications: Shortness of air. COMPARISON: April 07, 2019. Findings: No acute lung infiltrate or pleural effusion or pulmonary edema or lung mass or pneumothorax is seen. The heart size, pulmonary vasculature, mediastinum and both mine are unremarkable. Impression: No acute radiographic abnormality is seen. Electronically signed by: Dalton Hsu MD (09/30/2019 4:22 PM) [id number]
--- NOTE | 2019-09-30 16:44 | PHYS DOC ---
Past History Past Medical History: Anxiety, Bronchitis, Constipation, COPD, Depression, GERD Past Surgical History: Hysterectomy, Tonsillectomy Smoking: Cigarettes Alcohol Use: None Drug Use: None Adult General Chief Complaint Chief Complaint: SHORTNESS OF BREATH HPI HPI 49-year-old female presents with 2 day history of shortness of breath. The patient is unsure why she is feeling more short of breath. She has had a very mild intermittent cough, but no other change well. She denies chest pain or diaphoresis. Patient does have a smoking history but no official diagnosis of COPD. She tried one albuterol nebulizer today without much relief. She has no COVID 19 exposure risk factors. She denies fever or chills. Review of Systems Review of Systems Constitutional: Denies fever or chills [] Eyes: Denies change in visual acuity, redness, or eye pain [] HENT: Denies nasal congestion or sore throat [] Respiratory: Mild cough with shortness of breath [] Cardiovascular: No additional information not addressed in HPI [] GI: Denies abdominal pain, nausea, vomiting, bloody stools or diarrhea [] : Denies dysuria or hematuria [] Musculoskeletal: Denies back pain or joint pain [] Integument: Denies rash or skin lesions [] Neurologic: Denies headache, focal weakness or sensory changes [] Endocrine: Denies polyuria or polydipsia [] All other systems were reviewed and found to be within normal limits, except as documented in this note. Allergies Allergies Allergies Coded Allergies Type Severity Reaction Last Updated Verified amoxicillin Allergy Intermediate 03/22/19 Yes hydrocodone Allergy Intermediate 04/07/19 Yes oxycodone Allergy Intermediate 03/22/19 Yes tramadol Allergy Intermediate 04/07/19 Yes Physical Exam Physical Exam Constitutional: Well developed, well nourished, no acute distress, non-toxic appearance. [] HENT: Normocephalic, atraumatic, bilateral external ears normal, oropharynx moist, no oral exudates, nose normal. [] Eyes: PERRLA, EOMI, conjunctiva normal, no discharge. [] Neck: Normal range of motion, no tenderness, supple, no stridor. [] Cardiovascular:Heart rate regular rhythm, no murmur [] Lungs & Thorax: Bilateral breath sounds clear to auscultation [] Abdomen: Bowel sounds normal, soft, no tenderness, no masses, no pulsatile masses. [] Skin: Warm, dry, no erythema, no rash. [] Back: No tenderness, no CVA tenderness. [] Extremities: No tenderness, no cyanosis, no clubbing, ROM intact, no edema. [] Neurologic: Alert and oriented X 3, normal motor function, normal sensory function, no focal deficits noted. [] Psychologic: Affect normal, judgement normal, mood normal. [] Current Patient Data Vital Signs Vital Signs Date Time Temp Pulse Resp B/P (MAP) Pulse Ox O2 Delivery O2 Flow Rate FiO2 09/30/19 15:56 98.1 88 18 163/94 (117) 98 Room Air EKG EKG Sinus rhythm, rate 73, normal axis, no ST elevation or depression.[] Radiology/Procedures Radiology/Procedures [] Impressions: CHEST AP ONLY Clinical indications: Shortness of air. COMPARISON: April 07, 2019. Findings: No acute lung infiltrate or pleural effusion or pulmonary edema or lung mass or pneumothorax is seen. The heart size, pulmonary vasculature, mediastinum and both mine are unremarkable. Impression: No acute radiographic abnormality is seen. Electronically signed by: Neris Hsu MD (09/30/2019 4:22 PM) [id number] DICTATED AND SIGNED BY: NERIS HSU MD DATE: 09/30/19 1622 CC: TERESA DENG DO; REID REICH ~ Course & Med Decision Making Course & Med Decision Making Pertinent Labs and Imaging studies reviewed. (See chart for details) The patient's chest x-ray is negative for acute findings. Her EKG is unremarkable. Her labs are unremarkable. Her troponin is negative. The patient is not acutely wheezing. I do not believe that steroid treatment is warranted at this time. Advised she continue to use her nebulizer treatments at home, more frequently for the next couple days. She is stable for discharge at this time. [] Dragon Disclaimer Dragon Disclaimer This electronic medical record was generated, in whole or in part, using a voice recognition dictation system. Departure Departure: Impression: Primary Impression: Shortness of breath Disposition: HOME, SELF-CARE Condition: STABLE Referrals: REID REICH (PCP) TERESA DENG DO Sep 30, 2019 16:44
[2019-09-30 16:55] LABS: BASO % 1 % (0-3); EOS # 0.3 x10^3/uL (0.0-0.7); EOS % 6 % (0-3); HEMATOCRIT 40.4 % (36.0-47.0); LYMPH # 1.7 x10^3/uL (1.0-4.8); LYMPH % 30 % (24-48); MEAN CORPUSCULAR HEMOGLOBIN 27 pg (25-35); MEAN CORPUSCULAR HGB CONC 32 g/dL (31-37); MEAN CORPUSCULAR VOLUME 84 fL (79-100); MONO # 0.3 x10^3/uL (0.0-1.1); MONO % 6 % (0-9); NEUT # 3.4 x10^3uL (1.8-7.7); NEUT % 58 % (31-73); PLATELET COUNT 237 x10^3/uL (140-400); RED BLOOD COUNT 4.84 x10^6/uL (3.50-5.40); RED CELL DISTRIBUTION WIDTH 14.4 % (11.5-14.5); WHITE BLOOD COUNT 5.8 x10^3/uL (4.0-11.0)
[2019-09-30 17:14] LABS: CALCIUM 8.8 mg/dL (8.5-10.1); CREATININE 0.6 mg/dL (0.6-1.0); GFR 105.4; POTASSIUM 4.1 mmol/L (3.5-5.1)
[2019-09-30 17:15] LABS: BILIRUBIN,URINE NEG (NEG); CLARITY,URINE HAZY; COLOR,URINE YELLOW; GLUCOSE,URINE NEG (NEG)
[2019-09-30 17:16] LABS: BACTERIA,URINE 0 /HPF (0-FEW); NITRITE,URINE NEG (NEG); RBC,URINE OCC /HPF (0-2); SQUAMOUS EPITHELIAL CELL,UR OCC /LPF; UROBILINOGEN,URINE 0.2 mg/dL (0.2 mg/dL); WBC,URINE OCC /HPF (0-4)
[2019-09-30 17:19] LABS: ALBUMIN 3.4 g/dL (3.4-5.0); ALBUMIN/GLOBULIN RATIO 1.1 (1.0-1.7); TOTAL BILIRUBIN 0.2 mg/dL (0.2-1.0); TOTAL PROTEIN 6.4 g/dL (6.4-8.2)
[2019-09-30] MEDS ORDERED: IPRATRPIUM/ALBUTEROL 0.5/2.5MG 3 ML NEBU. NEB ONE (17:30)
== END 2019-09-30 17:48 | disposition home or self-care (01) ==
LOC: ER 15:45
DX: R06.02 Shortness of breath (principal); R05 Cough; F41.9 Anxiety disorder, unspecified; J44.9 Chronic obstructive pulmonary disease, unspecified; K21.9 Gastro-esophageal reflux disease without esophagitis; F17.210 Nicotine dependence, cigarettes, uncomplicated; Z88.1 Allergy status to other antibiotic agents; Z88.5 Allergy status to narcotic agent; Z88.6 Allergy status to analgesic agent
CPT/HCPCS: 36415; 71045; 80053; 81001; 84484; 85025; 93005; 94640; 99285